=== PATIENT | female | born 2000 | race Two or more races ===

== ENCOUNTER 2023-05-30 14:41 | Inpatient (IN) | payer MEDICAID ==
[~2023-05-30] VITALS: Ht 167.6 cm; Wt 81.8 kg
[2023-05-30] MEDS ORDERED: LORazepam 2 MG TABLET PO PRN (17:45)
[2023-05-30] MEDS ORDERED: ZOLPIDEM TARTRATE 10 MG TABLET PO PRN (17:45)
[2023-05-30] MEDS ORDERED: HALOPERIDOL 5 MG TABLET PO PRN (17:45)
[2023-05-30 20:03] LABS: COVID AG,FIA SOURCE NASAL SWAB
[2023-05-30 20:22] LABS: SARS-COV2 (COVID) ANTIGEN,FIA Negative (Negative)
[2023-05-30 23:39] VITALS: BP 115/68; PULSE 80; RESP 18; TEMP 97.7
[2023-05-30] MEDS ORDERED: INFLUENZA VIRUS VACCINE QVS 2023-24 (6MO+)/PF 60 MCG/0.5 ML SYRINGE IM. ONE (23:45)
[2023-05-31] MEDS ORDERED: IBUPROFEN 600 MG TABLET PO PRN (06:00)
[2023-05-31] MEDS ORDERED: LOPERAMIDE HCL 2 MG CAPSULE PO PRN (06:00)
[2023-05-31] MEDS ORDERED: MAG HYDROX/ALUMINUM HYD/SIMETH ES 30 ML SUSPENSION UDCUP PO PRN (06:00)
[2023-05-31] MEDS ORDERED: CloNIDine HCL 0.1 MG TABLET PO PRN (06:00)
[2023-05-31] MEDS ORDERED: MAGNESIUM HYDROXIDE SUSPENSION 30 ML UDCUP PO PRN (06:00)
[2023-05-31] MEDS ORDERED: ONDANSETRON HCL 4 MG TABLET PO PRN (06:00)
[2023-05-31] MEDS ORDERED: BACITRACIN 28 GM OINTMENT TP PRN (06:00)
[2023-05-31] MEDS ORDERED: ACETAMINOPHEN 325 MG TABLET PO PRN (06:00)
[2023-05-31] MEDS ORDERED: OMEPRAZOLE 20 MG CAPSULE PO PRN (06:00)
[2023-05-31] MEDS ORDERED: PETROLATUM,WHITE 28 GM JELLY TP PRN (06:00)
[2023-05-31] MEDS ORDERED: ALBUTEROL SULFATE HFA 90 MCG/PUFF 8 GM INHALER IH PRN (06:00)
[2023-05-31] MEDS ORDERED: BENZOCAINE/MENTHOL LOZENGE PO PRN (06:00)
[2023-05-31] MEDS ORDERED: DOCUSATE SODIUM 100 MG CAPSULE PO PRN (06:00)
[2023-05-31] MEDS: RisperiDONE 2 MG TABLET PO SCH ×3 (09:00→17:18)
[2023-05-31 21:56] VITALS: BP 108/69; PULSE 69; RESP 19; TEMP 97.8
[2023-05-31 21:57] VITALS: BP 108/69; PULSE 69; RESP 18; TEMP 97.8
[2023-06-01 08:24] VITALS: BP 125/65; PULSE 84; RESP 18; TEMP 97.8
[2023-06-01] MEDS: DIVALPROEX SODIUM 500 MG DR TABLET PO SCH ×2 (09:00→17:00)
[2023-06-01] MEDS: RisperiDONE 2 MG TABLET PO SCH ×2 (09:00→17:00)
[2023-06-01 10:29] LABS: BASOPHILS % (AUTO) 0.7 % (0.0-2.0); EOSINOPHILS % (AUTO) 1.2 % (1.0-6.0); HEMATOCRIT 30.2 % (36-46); HEMOGLOBIN 9.5 g/dL (12.0-16.0); LYMPHOCYTES # (AUTO) 1.8 K/uL (1.0-4.8); LYMPHOCYTES % (AUTO) 20.3 % (22.0-44.0); MEAN CORPUSCULAR HEMOGLOBIN 22.7 pg (26.0-34.0); MEAN CORPUSCULAR HGB CONC 31.5 G/dL (31.0-37.0); MEAN CORPUSCULAR VOLUME 72 fL (80-100); MONOCYTES # (AUTO) 0.6 K/uL (0.1-1.0); MONOCYTES % (AUTO) 7.2 % (2.0-9.0); NEUTROPHILS # (AUTO) 6.1 K/uL (1.8-7.7); NEUTROPHILS % (AUTO) 70.6 % (40.0-70.0); PLATELET COUNT (AUTO) 432 K/uL (150-450); RED BLOOD CELL COUNT(AUTO) 4.18 MIL/uL (4.00-5.20); RED CELL DISTRIBUTION WIDTH 16.3 % (11.5-14.5); WHITE BLOOD COUNT (AUTO) 8.7 K/uL (4.5-11.0)
[2023-06-01 10:31] LABS: RBC MORPHOLOGY COMMENT ABNORMAL RBC MORPH
[2023-06-01 11:13] LABS: ALANINE AMINOTRANSFERASE 20 U/L (12-78); ALBUMIN 3.2 g/dL (3.4-5.0); ALKALINE PHOSPHATASE 95 U/L (46-116); ANION GAP 5 mmol/L (8-16); ASPARTATE AMINOTRANSFERASE 17 U/L (15-37); BILIRUBIN,TOTAL 0.3 mg/dL (0.1-1.0); CALCIUM, TOTAL 7.9 mg/dL (8.8-10.5); CARBON DIOXIDE 28 mmol/L (22-29); CHLORIDE 104 mmol/L (98-107); CHOLESTEROL 111 mg/dL (131-200); CREATININE 0.74 mg/dL (0.60-1.30); GLOMERULAR FILTR. RATE CALC > 60 mL/min (>60); GLUCOSE,RANDOM 82 mg/dL (70-110); HDL CHOLESTEROL 37 mg/dL (40-60); LDL CHOL (CALC.) 67 mg/dL (0-130); PHOSPHORUS 4.2 mg/dL (2.5-4.9); POTASSIUM 4.3 mmol/L (3.5-5.1); SODIUM SERUM 137 mmol/L (136-145); TOTAL PROTEIN, SERUM 7.2 g/dL (6.4-8.2); TRIGLYCERIDES 34 mg/dL (15-150); UREA NITROGEN, BLOOD 17 mg/dL (7-18)
[2023-06-01 12:31] LABS: THYROID STIMULATING HORMONE 0.33 uIU/mL (0.36-3.74)
[2023-06-01 21:22] VITALS: RESP 18
[2023-06-02] MEDS: RisperiDONE 2 MG TABLET PO SCH ×2 (09:00→16:12)
[2023-06-02] MEDS: DIVALPROEX SODIUM 500 MG DR TABLET PO SCH ×2 (09:00→16:12)
[2023-06-02 09:45] VITALS: BP 93/50; PULSE 84; RESP 16; TEMP 98.2
[2023-06-02 20:21] VITALS: BP 93/53; PULSE 97; RESP 18; TEMP 98.3
[2023-06-03 06:25] VITALS: BP 106/52; PULSE 75; RESP 20
[2023-06-03] MEDS: DIVALPROEX SODIUM 500 MG DR TABLET PO SCH ×2 (08:43→17:00)
[2023-06-03] MEDS: RisperiDONE 2 MG TABLET PO SCH ×2 (08:43→17:00)
[2023-06-03 13:55] VITALS: BP 110/63; PULSE 89; RESP 18; TEMP 97.2
[2023-06-03 21:00] VITALS: BP 100/56; PULSE 87; RESP 18; TEMP 97.4
[2023-06-04 08:50] VITALS: BP 105/59; PULSE 63; RESP 17; TEMP 98
[2023-06-04] MEDS: RisperiDONE 2 MG TABLET PO SCH ×2 (09:00→16:35)
[2023-06-04] MEDS: DIVALPROEX SODIUM 500 MG DR TABLET PO SCH ×2 (09:00→16:35)
[2023-06-04 22:17] VITALS: RESP 18
[2023-06-05 08:35] VITALS: BP 94/49; PULSE 97; RESP 18; TEMP 97.6
[2023-06-05] MEDS: RisperiDONE 2 MG TABLET PO SCH ×3 (08:55→17:10)
[2023-06-05] MEDS: DIVALPROEX SODIUM 500 MG DR TABLET PO SCH ×3 (08:55→17:10)
[2023-06-05 20:15] VITALS: RESP 18
[2023-06-06] MEDS: DIVALPROEX SODIUM 500 MG DR TABLET PO SCH ×2 (08:23→16:25)
[2023-06-06] MEDS: RisperiDONE 2 MG TABLET PO SCH ×2 (08:23→16:25)
[2023-06-06 08:30] VITALS: BP 124/63; PULSE 98; RESP 18
[2023-06-06 20:37] VITALS: BP 126/68; PULSE 82; RESP 18; TEMP 97.7
[2023-06-06 21:58] VITALS: RESP 18
[2023-06-07 08:25] VITALS: BP 95/58; PULSE 75; RESP 18
[2023-06-07] MEDS: DIVALPROEX SODIUM 500 MG DR TABLET PO SCH ×2 (08:36→16:47)
[2023-06-07] MEDS: RisperiDONE 2 MG TABLET PO SCH ×2 (08:36→16:46)
[2023-06-07 20:35] VITALS: BP 117/66; PULSE 88; RESP 18
[2023-06-08 08:15] VITALS: BP 113/67; PULSE 77; RESP 16
[2023-06-08] MEDS: DIVALPROEX SODIUM 500 MG DR TABLET PO SCH ×2 (09:33→17:24)
[2023-06-08] MEDS: RisperiDONE 2 MG TABLET PO SCH ×2 (09:33→17:24)
[2023-06-08 20:29] VITALS: RESP 18
[2023-06-09] MEDS: DIVALPROEX SODIUM 500 MG DR TABLET PO SCH ×2 (08:30→16:55)
[2023-06-09] MEDS: RisperiDONE 2 MG TABLET PO SCH ×2 (08:30→16:55)
[2023-06-09 08:35] VITALS: BP 113/65; PULSE 73; RESP 18
[2023-06-09 20:21] VITALS: BP 114/66; PULSE 76; RESP 18; TEMP 97.6
[2023-06-10] MEDS: DIVALPROEX SODIUM 500 MG DR TABLET PO SCH (08:18)
[2023-06-10] MEDS: RisperiDONE 2 MG TABLET PO SCH (08:18)
[2023-06-10 14:01] VITALS: BP 102/63; PULSE 100; RESP 18; TEMP 97.5
[2023-06-10] MEDS ORDERED: RISP2TAB86 PO (14:05)
[2023-06-10] MEDS ORDERED: DIVA-112 PO (14:05)
== END 2023-06-10 16:15 | disposition home or self-care (01) | DRG 750 ==
LOC: EMS 14:43 → 3EC 22:45 → UNDOADMIN 22:45
PROVIDERS: ADMIT Psychiatry & Neurology Psychiatry; ATTEND Psychiatry & Neurology Psychiatry
DX: F25.9 Schizoaffective disorder, unspecified (principal); R45.851 Suicidal ideations; F41.9 Anxiety disorder, unspecified; G47.00 Insomnia, unspecified; K21.9 Gastro-esophageal reflux disease without esophagitis; Z20.822 Contact with and (suspected) exposure to COVID-19; F15.10 Other stimulant abuse, uncomplicated; K59.00 Constipation, unspecified; F31.9 Bipolar disorder, unspecified; T43.506A Underdosing of unspecified antipsychotics and neuroleptics, initial encounter; Y92.89 Other specified places as the place of occurrence of the external cause
CPT/HCPCS: 80053; 80061; 80164; 83735; 84100; 84443; 84703; 85025; 99285